=== PATIENT | female | born 1960 | race Caucasian/White ===

== ENCOUNTER 2018-08-29 06:39 | Observation (INO) ==
--- NOTE | 2018-08-15 08:30 | EKG Report ---
Test Performed on : 08/15/2018 08:12:35 AM Test Reason : PAT Blood Pressure : / mmHG Vent. Rate : 078 BPM Atrial Rate : 078 BPM P-R Int : 190 ms QRS Dur : 066 ms QT Int : 368 ms P-R-T Axes : 055 032 066 degrees QTc Int : 419 ms Normal sinus rhythm. Low voltage QRS Septal infarct (cited on or before 25-AUG-2014) Abnormal ECG When compared with ECG of 25-AUG-2014 16:32, Criteria for Inferior infarct are no longer present Questionable change in initial forces of Septal leads Confirmed by Kaushik RUIZ, Gonzalo Mittal ([id number]) on 08/16/2018 11:38:36 AM
[2018-08-15 09:05] LABS: URINE SOURCE CLEAN CATCH
[2018-08-15 09:15] LABS: BASO# 0.01 X1000 (0.0-0.2); BASO% 0.1 % (0.0-0.8); BILIRUBIN URINE NEGATIVE (NEGATIVE); BLOOD URINE NEGATIVE (NEGATIVE); COLOR YELLOW; EOS# 0.01 X1000 (0.0-0.7); EOS% 0.1 % (0.0-10.0); GLUCOSE URINE NEGATIVE (NEGATIVE); HEMATOCRIT 44.9 % (37.0-47.0); HEMOGLOBIN 14.8 g/dL (12.0-16.0); IMM GRAN# 0.04 X1000 (0.0-0.04); IMM GRAN% 0.5 % (0.0-0.5); KETONE URINE NEGATIVE (NEGATIVE); LEUKOCYTES URINE NEGATIVE (NEGATIVE); LYMPH# 2.14 X1000 (1.2-3.4); LYMPH% 25.3 % (20.5-51.1); MCH 30.3 PG (27-31); MONO% 4.7 % (1.7-9.3); MPV 11.6 FL (7.4-10.4); NEUT# 5.87 X1000 (1.4-6.5); NEUT% 69.3 % (42.2-75.2); NITRITE URINE NEGATIVE (NEGATIVE); PLT 272 X1000 (130-400); PROTEIN URINE NEGATIVE (NEGATIVE); RBC 4.88 XMIL (4.2-5.4); RDW 13.8 % (11.5-14.5); TURBIDITY URINE CLEAR (CLEAR); UROBILINOGEN URINE NORMAL (NORMAL); WBC 8.47 X1000 (4.8-10.8)
[2018-08-15 09:17] LABS: UR EPITHELIAL CELLS <10 /HPF (<10); URINE BACTERIA NEGATIVE /HPF; URINE RBC <10 /HPF (<10); URINE WBC <10 /HPF (<10)
[2018-08-15 09:22] LABS: INR 0.97; PROTIME 13.7 Seconds (11.0-16.0)
[2018-08-15 09:23] LABS: PTT 37.3 Seconds (22.3-41.8)
[2018-08-15 10:31] LABS: AGAP 13; BUN 12 mg/dL (8-22); CALCIUM 9.2 mg/dL (8.8-10.2); CHLORIDE 103 mmol/L (98-107); COSMO 281; CREATININE 0.9 mg/dL (0.5-0.9); ESTIMATED GFR > 60; GLUCOSE 105 mg/dL (70-104); POTASSIUM 4.2 mmol/L (3.5-5.1); SODIUM 141 mmol/L (136-145); TCO2 25 mmol/L (25-35)
[2018-08-29] MEDS ORDERED: KEFZOL 1 GM/D5W 2 GM/100 ML IVPB ONE (07:03)
[2018-08-29] MEDS ORDERED: REGLAN ONE (07:03)
[2018-08-29] MEDS ORDERED: COLACE ONE (07:03)
[2018-08-29] MEDS ORDERED: PEPCID ONE (07:03)
[2018-08-29] MEDS ORDERED: LYRICA ONE (07:03)
[2018-08-29] MEDS ORDERED: LR 1,000 ML ONE (07:04)
[2018-08-29] MEDS ORDERED: DECADRON ONE (07:36)
[2018-08-29] MEDS ORDERED: XYLOCAINE-MPF 2% ONE ×2 (07:36→11:12)
[2018-08-29] MEDS ORDERED: VERSED ONE (07:38)
[2018-08-29] MEDS ORDERED: FENTANYL ONE ×2 (07:39→08:18)
[2018-08-29] MEDS ORDERED: OFIRMEV 1000 MG/ISOTONIC SOLN 1,000 MG/100 ML BOTTLE ONE (07:40)
[2018-08-29] MEDS ORDERED: DIPRIVAN 1% ONE (07:49)
[2018-08-29] MEDS ORDERED: ROBINUL ONE ×2 (08:19→09:26)
[2018-08-29] MEDS ORDERED: TORADOL ONE (08:38)
[2018-08-29] MEDS ORDERED: MARCAINE 0.25% PF ONE (08:38)
[2018-08-29] MEDS ORDERED: DURAMORPH ONE (08:38)
[2018-08-29] MEDS ORDERED: NEOSPORIN G.U. IRRIGANT ONE (08:39)
[2018-08-29] MEDS ORDERED: SODIUM CHLORIDE 0.9% ONE (08:39)
[2018-08-29] MEDS ORDERED: VANCOMYCIN ONE (08:39)
[2018-08-29] MEDS ORDERED: EXPAREL 1.3% ONE (08:39)
[2018-08-29] MEDS ORDERED: CYKLOKAPRON 1,000 MG/NS 1,000 MG/100 ML IVPB ONE ×2 (08:39→08:40)
[2018-08-29] MEDS ORDERED: ZOFRAN ONE (09:25)
[2018-08-29] MEDS ORDERED: EPHEDRINE ONE (09:30)
[2018-08-29] MEDS ORDERED: SODIUM CHLORIDE 0.9% 10 ML ONE (09:30)
[2018-08-29] MEDS ORDERED: NS 1,000 ML ONE (11:42)
--- NOTE | 2018-08-29 12:37 | OPERATIVE NOTE ---
PROCEDURE DATE: 08/29/2018 PREOPERATIVE DIAGNOSIS: Degenerative arthritis of the left knee. POSTOPERATIVE DIAGNOSIS: Degenerative arthritis of the left knee. PROCEDURE: Left total knee arthroplasty with DePuy Attune size 4 posterior stabilized femur, a size 5 tibial tray, a 6 mm rotating platform tibial insert, and a 35 mm medialized anatomic patella. SURGEON: Willis Swain MD. 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 SECOND CLINICAL TRIALS MANAGER: Sammy Chen RN. ANESTHESIA: General. IV FLUIDS: 2000 mL lactated Ringer's. TOURNIQUET TIME: 90 minutes at 350 mmHg. COMPLICATIONS: None. INDICATION: The patient is a pleasant 57-year-old female with a chronic history of pain and discomfort in the left knee. The pain has worsened recently after an injury. X-rays revealed degenerative arthritis and MRI was obtained, confirmed evidence of arthritis of the medial compartment and patellofemoral joint. Given the patient's findings, a recommendation to proceed with left total knee arthroplasty was offered. Risks and benefits of surgery were explained, including the risks of anesthesia, , bleeding, infection, failure to relieve pain, postoperative stiffness, nerve injury, blood clots, and other imponderables. All questions were answered and the patient wished to proceed with surgery. DETAILS OF OPERATION: The patient was taken to the operating room and placed supine on the operating table. Once adequate anesthesia was obtained, patient's left lower extremity was subsequently prepped and draped in the usual sterile fashion. An Esmarch was used to exsanguinate left lower extremity and the tourniquet was inflated to 350 mmHg. A standard anterior incision was made with skin knife. Medial and lateral and skin envelopes were developed. A standard medial parapatellar arthrotomy was then performed. Patella fat pad was excised. Retractors were then placed. Approximately 1 cm anterior to the PCL insertion, a starting reamer was passed. Intramedullary guide with a distal femoral cutting block was pinned in position. Distal femoral cut was then performed in standard fashion. A sizing block was placed and measured a size 4. Corresponding pins were placed. Anterior, posterior, and chamfer cuts were then made. Attention was then turned to the proximal tibia where further resection of the ACL and PCL was performed. Using the extramedullary guide, the proximal tibia cutting block was pinned in position. Proximal tibia was then resected. A curved osteotome was used to remove the posterior osteophytes off the distal femur. A spacer block was placed, was somewhat tight in both flexion and extension initially; therefore, 2 more millimeters was resected off the tibia. Attention was then turned to the proximal tibia where a size 5 tibial tray appeared to be the correct size. This was pinned in position. This was followed by a central reamer and a fin punch. A box cutting guide was then placed on the distal femur. A box cut was performed. Trial femoral component was then placed. Two lug holes were drilled. A trial tibial insert was then placed and had good soft tissue balancing. The patella had been everted prior to the femoral cuts and resected in standard fashion. A protective disc was then placed for the remaining portion the case. At this time, attention was then turned to the patella and the protective disc was removed. A size 35 appeared to be the correct size. Corresponding holes were drilled. The trial patella component was placed and had good patellofemoral tracking. After this had been performed, the trial components were removed. Copious irrigation was then performed with antibiotic pulsatile lavage while vancomycin was mixed with cement on the back table. Sequential cementing was then performed, first with the tibial tray and excess cement was removed with a Ada, followed by the femoral component, excess cement was removed with a Ada, followed by trial tibial insert in full extension, axial loading was maintained while the cement cured. The patella component was cemented in standard fashion. Patella clamp was placed. While the cement was curing, Exparel was placed in the deep soft tissue, as well as the subcutaneous tissue. After the cement had cured, peripheral cement was removed with a small osteotome. A 6 mm rotating platform tibial insert appeared be the correct size. Exparel was placed in the deep posterior capsule after the trial insert was removed. Copious irrigation was then performed once again with antibiotic pulsatile lavage. This was followed by a 6 mm rotating platform tibial insert. The knee was then carried through range of motion and had good range of motion, good soft tissue balance and good patellofemoral tracking. A 1/8 Hemovac drain was placed, it was not sewn in. Copious irrigation was then performed once again with antibiotic pulsatile lavage. #1 Vicryl was used for the arthrotomy followed by 2-0 Vicryl to repair the subcutaneous tissue, and skin lynn. Adaptic, sterile 4 x 4's, ABD pad, Webril, cryo unit, and Shahriar wrap was applied to the left lower extremity. The patient tolerated the procedure well and was transferred to the recovery room in stable condition. cc: Willis wSain MD
--- NOTE | 2018-08-29 12:45 | Diag Imaging Result Doc PS360 ---
EXAM: KNEE 1-2 VIEWS-LEFT 08/29/2018 HISTORY: left TKA TECHNIQUE: Left knee two views COMMENT: There is a total knee arthroplasty. There is no evidence of acute fracture. IMPRESSION: Postsurgical changes. Electronically signed by Moe Mendez 08/29/2018 12:43 PM
[2018-08-29] MEDS ORDERED: MORPHINE IV PRN ×3 (14:00)
[2018-08-29] MEDS ORDERED: OXY IR PO PRN (14:00)
[2018-08-29] MEDS ORDERED: NS 1,000 ML IV SCH (14:00)
[2018-08-29] MEDS ORDERED: ZOFRAN PO PRN (14:00)
[2018-08-29 15:10] LABS: URINE SOURCE CATH
[2018-08-29 15:18] LABS: BILIRUBIN URINE NEGATIVE (NEGATIVE); BLOOD URINE NEGATIVE (NEGATIVE); COLOR STRAW; GLUCOSE URINE NEGATIVE (NEGATIVE); KETONE URINE NEGATIVE (NEGATIVE); LEUKOCYTES URINE NEGATIVE (NEGATIVE); NITRITE URINE NEGATIVE (NEGATIVE); PROTEIN URINE NEGATIVE (NEGATIVE); SP GRAVITY URINE 1.004; TURBIDITY URINE CLEAR (CLEAR); UR EPITHELIAL CELLS <10 /HPF (<10); URINE BACTERIA NEGATIVE /HPF; URINE RBC <10 /HPF (<10); URINE WBC <10 /HPF (<10); UROBILINOGEN URINE NORMAL (NORMAL)
[2018-08-29] MEDS ORDERED: VENTOLIN HFA INH PRN ×2 (17:14→19:44)
[2018-08-29] MEDS: OXY IR PO PRN ×2 (18:06→22:54)
[2018-08-29] MEDS: KEFZOL 2 GM/D5W 2 GM/50 ML IVPB IV SCH (18:10)
[2018-08-29] MEDS ORDERED: TENORMIN PO SCH (21:00)
[2018-08-30] MEDS: KEFZOL 2 GM/D5W 2 GM/50 ML IVPB IV SCH (00:41)
[2018-08-30] MEDS ORDERED: XARELTO PO SCH (06:00)
[2018-08-30] MEDS: OXY IR PO PRN ×4 (06:17→21:03)
[2018-08-30 07:10] LABS: HEMATOCRIT 39.1 % (37.0-47.0); HEMOGLOBIN 12.4 g/dL (12.0-16.0)
[2018-08-30 07:11] LABS: AGAP 11; BUN 16 mg/dL (8-22); CALCIUM 8.2 mg/dL (8.8-10.2); CHLORIDE 107 mmol/L (98-107); COSMO 286; CREATININE 0.9 mg/dL (0.5-0.9); ESTIMATED GFR > 60; GLUCOSE 128 mg/dL (70-104); POTASSIUM 4.2 mmol/L (3.5-5.1); SODIUM 142 mmol/L (136-145); TCO2 24 mmol/L (25-35)
[2018-08-30] MEDS ORDERED: EFFEXOR XR PO SCH (09:00)
--- NOTE | 2018-08-30 09:27 | ORTHOPAEDICS PROGRESS NOTE ---
DATE: 08/30/2018 SUBJECTIVE: The patient is a pleasant 57-year-old female who is 1 day status post left total knee arthroplasty. The patient has had some expected discomfort. PHYSICAL EXAMINATION: The left lower extremity dressing is intact. Calf is soft. There is active dorsiflexion and plantarflexion. LABS: Pending. IMPRESSION: The patient is postoperative day #1 status post left total knee arthroplasty. PLAN: At this point, we will change her dressing, discontinue her drain and Saleh. We will begin mobilization with Physical Therapy. We will consult [employer] to arrange for home physical therapy. We will discharge home once she is mobilizing well. cc: Willis Swain MD
[2018-08-30 17:55] VITALS: BP 170/85
== END 2018-08-30 21:10 | disposition home or self-care (01) ==
LOC: OR 06:39 → 4N 06:39
PROVIDERS: ADMIT Orthopaedic Surgery Adult Reconstructive Orthopaedic Surgery; ATTEND Orthopaedic Surgery Adult Reconstructive Orthopaedic Surgery
CPT/HCPCS: 73560; 80048; 81001; 85014; 85018; 85025; 85610; 85730; 86850; 86900; 86901; 88305; 88311; 93005; 93010; 94761; 94799; 97110; 97162; 97530; A9270; C9290; J0131; J0690; J1100; J1885; J2250; J2270; J2274; J2275; J2405; J3010; J3370; J7030; J7120; Q9974; S0020